=== PATIENT | male | born 1960 | race Caucasian/White ===

== ENCOUNTER 2016-11-09 23:53 | Emergency (ER) | payer OTHER ==
[~2016-11-09] VITALS: Ht 170.2 cm; Wt 90.8 kg
[~2016-11-09 23:53] MED LIST: LISI-791 PO; MULT-599 PO
[2016-11-09 23:57] VITALS: TEMP 36.6; Ht 170.2 cm; Wt 90.8 kg
[2016-11-10] MEDS ORDERED: SEPTRA DS HOME PACK 1 EA VIAL PO ONE (00:15)
[2016-11-10] MEDS ORDERED: SULF800T23 PO (00:16)
[2016-11-10 00:22] VITALS: BP 164/101; PULSE 84; O2SAT 96
--- NOTE | 2016-11-10 06:45 | EMERGENCY ROOM VISIT NOTE ---
History First contact with patient: 00:01 Chief Complaint: FINGER PAIN Stated Complaint: RIGHT PINKY IS BILLED AND THROBBING WITH PAIN History of Present Illness The patient is a 56 year old male who presents to the Emergency Room with complaints of pain and swelling of his right fifth finger worsening over the past 2-3 days. The patient does not recall injury or trauma to the area. He states that he believes there is infection in the finger, and attempted to drain it from home. The patient was not successful. He is not diabetic. He rates his discomfort a 5/10. Review of Systems More than 6 systems were reviewed and otherwise negative with the exception of history of present illness. Past Medical/Surgical History Medical Problems: (1) Carpal tunnel syndrome (2) Sleep apnea Family History No pertinent family history Social History Smoking Status: Never Smoker Marital Status: Occupation Status: employed Current/Historical Medications Scheduled Lisinopril (Zestril), 10 MG PO DAILY Multiple Vitamins W/ Minerals (Mens 50+ Multi Vitamin &), 1 TAB PO DAILY Sulfamethoxazole-Trimethoprim (Bactrim Ds 800MG/160MG), 1 TAB PO BID Physical Exam Vital Signs Date Time Temp Pulse Resp B/P (MAP) Pulse Ox O2 Delivery O2 Flow Rate FiO2 11/10/16 00:22 84 18 164/101 96 11/09/16 23:57 36.6 88 18 145/98 95 Room Air Physical Exam VITALS: Vitals are noted on the nurse's note and reviewed by myself. Vital signs stable. GENERAL: Well-developed, well-nourished, white male, who is in no acute distress and resting comfortably. Patient is cooperative with the examination. HEART: Regular rate and rhythm without murmurs gallops or rubs. LUNGS: Clear to auscultation bilaterally without wheezes, rales or rhonchi. No retractions or accessory muscle use. MUSCULOSKELETAL: There is erythema and edema along the medial aspect of the right fifth finger in the bridge of the fingernail. This is consistent with paronychia. The patient has full sensation and range of motion of the hand. No lymphangitic streaking. NEURO: Patient was alert and oriented to person place and time. CN II through XII grossly intact. Medical Decision & Procedures Medications Administered Medications (Trade) Dose Ordered Sig/Bennie Route Start Time Stop Time Status Last Admin Dose Admin Trimethoprim/ Sulfamethoxazole (Sulfameth/ Trimeth Ds 800/ 160MG Home Pack) 1 [facility] UD ONCE PO 11/10/16 00:15 11/10/16 00:16 DC 11/10/16 00:21 1 [facility] ED Course Physical exam and history were performed. Nursing notes, EMR, and Medication List were personally reviewed. Patient appears to have a paronychia of the right fifth finger. The patient I discussed options of care, and the skin was cleansed with Betadine. Utilizing sterile technique and ethyl chloride for anesthesia, I was able to drain a very small amount of purulent drainage utilizing an 18-gauge needle. The patient tolerated this well. He will be given a course of Bactrim and instructions to follow with his primary care physician in the next 2-3 days for recheck. He is to return to the ER with any new, worsening, or concerning symptoms. The chart was completed utilizing [employer] Speech Voice Recognition Software. Grammatical errors, random word insertions, pronoun errors, and incomplete sentences are an occasional consequence of this system due to software limitations, ambient noise, and hardware issues. Any formal questions or concerns about the content, text, or information contained within the body of this dictation should be directly addressed to the provider for clarification. . Medical Decision Differential diagnosis: Etiologies such as cellulitis, abscess, MRSA infection, DVT, necrotizing fasciitis, dermatitis, drug eruption, as well as others were entertained.. Impression Primary Impression: Paronychia of finger of right hand Departure Information Dispostion Home / Self-Care Condition GOOD Prescriptions Sulfamethoxazole-Trimethoprim (Bactrim Ds 800MG/160MG) 1 Tab Tab 1 TAB PO BID for 7 Days, #14 TAB Prov: Barry Curiel PA-C 11/10/16 Forms HOME CARE DOCUMENTATION FORM, IMPORTANT VISIT INFORMATION Patient Instructions My [facility] Additional Instructions You were seen and evaluated today on an emergency basis only. This is not a substitute for, or an effort to provide, complete comprehensive medical care. It is not possible to recognize and treat all injuries or illnesses in a single emergency department visit. For this reason it is recommended that you followup with your primary care physician this week for any ongoing or persistent symptoms. Trimethoprim-Sulfamethoxazole(Bactrim DS): Take one pill twice daily for 7 days for your skin infection. All antibiotics can cause diarrhea. If this occurs and you feel worse or it does not resolve in 1-2 days follow up with your doctor or return to the Emergency Department as this could be signs of serious underlying problems. Any medication can cause an allergic reaction, stop the pills immediately and return to the ER for rash, hives, breathing difficulties, or swelling. You are welcome to return to the emergency department anytime with new, worsening, or concerning symptoms.
== END 2016-11-10 00:23 | disposition home or self-care (01) ==
LOC: C.EDB 23:54 → C.EDC 11-10 00:23
DX: L03.011 Cellulitis of right finger (principal); M79.644 Pain in right finger(s); G47.30 Sleep apnea, unspecified; G56.00 Carpal tunnel syndrome, unspecified upper limb; Z79.899 Other long term (current) drug therapy

== ENCOUNTER 2018-03-12 13:04 | Inpatient (IN) ==
[2018-03-12 14:06] LABS: Appearance Urine Clear (Clear); Bacteria Urine Automated Negative (Negative); Bilirubin Urine Negative (Negative); Color Urine Yellow; Epithelial Cell Urine Auto 20-30 /lpf (0-5); Glucose Urine UA 3+ (Negative); Ketones Urine Trace (Negative); Leukocyte Esterase Urine Negative (Negative); Nitrite Urine Negative (Negative); Protein Urine 2+ (Negative); Urobilinogen Urine Negative (Negative); pH Urine 5.5 (4.5-7.5)
[2018-03-12 14:18] LABS: Calcium Oxalate Crystals Urine Present (None Prsent)
[2018-03-12 14:21] LABS: Basophils # (auto) 0.04 K/uL (0-0.2); Basophils % (auto) 0.4 %; Eosinophils # (auto) 0.37 K/uL (0-0.5); Eosinophils % (auto) 3.9 %; Hemoglobin 14.4 g/dL (14.0-18.0); Immature Granulocytes # (auto) 0.04 K/uL (0.00-0.02); Immature Granulocytes % (auto) 0.4 %; Lymphocytes # (auto) 1.68 K/uL (1.2-3.4); Lymphocytes % (auto) 17.9 %; Mean Corpuscular Hgb Conc 33.5 g/dL (32-36); Mean Corpuscular Volume 87.6 fL (80-100); Monocytes # (auto) 0.96 K/uL (0.11-0.59); Monocytes % (auto) 10.2 %; Neutrophils % (auto) 67.2 %; Platelet Count 206 K/uL (130-400); RDW Coefficient of Variation 12.4 % (11.5-14.5); RDW Standard Deviation 39.8 fL (36.4-46.3); Red Blood Count 4.91 M/uL (4.7-6.1); White Blood Count 9.39 K/uL (4.8-10.8)
[2018-03-12 14:51] LABS: Albumin Level 3.2 gm/dl (3.4-5.0); BUN Creatinine Ratio 10.9 (10-20); Calcium 8.7 mg/dl (8.5-10.1); Creatinine Clr Calc Pharmacy 97.4 ml/min; Est GFR (African American) 111.6; Est GFR (Non-African American) 96.3; Potassium 3.6 mmol/L (3.5-5.1)
[2018-03-12 14:52] LABS: Acetaminophen < 2 ug/ml (10-30); Salicylate < 1.7 mg/dl (2.8-20)
[2018-03-12 14:54] LABS: Amphetamines+Metham, Urine Neg (Neg); Barbiturates, Urine Neg (Neg); Benzodiazepine, Urine Neg (Neg); Cocaine, Urine Neg (Neg); MDMA (Ecstacy), Urine Neg (Neg); Methadone, Urine Neg (Neg); Opiate, Urine Neg (Neg); Phencyclidine, Urine Neg (Neg)
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
[2018-03-12 15:02] LABS: Albumin Globulin Ratio 0.8 (0.9-2); Bilirubin,Total 0.2 mg/dl (0.2-1); Total Protein 7.2 gm/dl (6.4-8.2)
[2018-03-12] MEDS ORDERED: LORazepam 1 MG TAB SL STA (17:57)
[2018-03-12] MEDS ORDERED: ALUMINUM/MAGNESIUM SUSP 30 ML UDC PO PRN (20:37)
[2018-03-12] MEDS ORDERED: BISMUTH SUBSALICYLATE PER ML OMNICELL CHARGE PO PRN (20:37)
[2018-03-12] MEDS ORDERED: MAGNESIUM HYDROXIDE SUSP 30 ML UDC PO PRN (20:37)
[2018-03-12] MEDS ORDERED: SODIUM CHLORIDE 0.65% NA SOLN 45 ML (OCEAN) PRN (20:37)
[2018-03-12] MEDS ORDERED: ACETAMINOPHEN 325 MG TAB PO PRN (20:37)
[2018-03-12] MEDS ORDERED: ALBUTEROL HFA 8 GM INHALER INH PRN (20:38)
[2018-03-12] MEDS ORDERED: IBUPROFEN 200 MG TAB PO PRN (20:47)
[2018-03-12] MEDS: APIXABAN 5 MG TABLET PO SCH (22:16)
[2018-03-12] MEDS: cloNIDine HCl 0.1 MG TAB PO SCH (22:16)
[2018-03-13] MEDS: METOPROLOL SUCC 50MG EXT REL TAB PO SCH (09:09)
[2018-03-13] MEDS: APIXABAN 5 MG TABLET PO SCH ×2 (09:09→21:27)
[2018-03-13] MEDS: cloNIDine HCl 0.1 MG TAB PO SCH ×2 (09:09→21:27)
[2018-03-13] MEDS: LISINOPRIL 10 MG TAB PO SCH (09:10)
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
[2018-03-13] MEDS: SERTRALINE HCL 50 MG TABLET PO SCH (15:10)
[2018-03-14] MEDS: SERTRALINE HCL 50 MG TABLET PO SCH (09:08)
[2018-03-14] MEDS: METOPROLOL SUCC 50MG EXT REL TAB PO SCH (09:08)
[2018-03-14] MEDS: cloNIDine HCl 0.1 MG TAB PO SCH (09:08)
[2018-03-14] MEDS: APIXABAN 5 MG TABLET PO SCH (09:08)
[2018-03-14] MEDS: LISINOPRIL 10 MG TAB PO SCH (09:08)
--- NOTE | 2018-03-14 10:00 | Discharge Summary ---
Date of Service March 14, 2018, >30 min spent reviewing case, meeting with patient and preparing documentation. History of Present Illness see H&P. Physical Exam Mental Examination I (Dr. Corcoran) personally met with the patient on the day of discharge and reviewed his care and discharge planning with nursing and social work. He verbalizes his safety plan. He has consistently denied SI/HI since admission and has not rescinded his 72 hour notice. Reviewed that he was hospitalized based on risk (prior potential lethal suicide attempt with a gun, mother completing suicide when he was 6). He is future focussed, reports that he wants to live for his children and grandchildren and is hoping he can return home after PFA hearing on 03/19. He has a job interview on 03/16. He will be supervised/staying with his son in the interim who confirms that his (son's) weapon was removed from the home and that patient will not have access. He is tolerating restart of Zoloft. He will resume 100 mg previously effective dose of Zoloft at discharge. Today the patient reports that he has a CPAP machine at home that he did not have access to here in the hospital. Reviewed that this could be the cause of BP being higher here. He states he will resume use on return home and will follow-up with PCP office on 03/16 after his job interview. There is no evidence of psychosis or other psychiatric condition interfering with his medical decision making and he does not meet criteria for involuntary commitment. He will be discharged to outpatient care with close follow-up as scheduled. Appearance: Well Groomed Eye Contact: Maintains Eye Contact Motor Behavior: Unremarkable Speech: Normal Mood: Euthymic Affect: Appropriate Thought Process: Linear and Logical Thought Content: Intact Hallucinations: None Insight: Fair Judgement: Fair Vital Signs (Past 24 Hours) Last Vital Signs Temp 36.5 C 03/14/18 06:46 Pulse 80 03/14/18 06:48 Resp 16 03/14/18 06:46 BP 153/105 H 03/14/18 06:48 Pulse Ox 95 03/12/18 21:01 Principal Diagnosis Major depressive disorder Psychiatric Data Advance Directives Advance Directives Information Provided: Yes Advance Directives: No Mental Health Advance Directive: No Advance Directives on File: No Living Will: No Power of [employer] Sales Representative: No Advance Directives Reason:: Declines as Mental Health Visit. Risk Factors Assessment Male: Yes : Yes Do You Have Access To A Gun?: No Health Problems: Yes Mental Health Diagnoses: Yes Substance Use Disorders: No Previous Attempt: Yes Previous Attempt; Highly Lethal: Yes Previous Attempt; Planned: Yes Previous Attempt; Didn't Tell Anyone: No Family History of Suicide: Yes Previous Psychiatric Hospitalization: Yes (In [place] following his suicide attempt of 10/28.) Hopelessness: No Smoker: No Protective Factors Assessment Advent Beliefs: Yes : Yes Responsible for Young Children: Yes Employed: No Stable Relationships: Yes Supportive Family: Yes (Certain family members are supportive, such as his son. However, certain family members have indicated that they can no longer be supportive.) Good Rapport with Provider: Yes Absence of Any Risk Factors Above: No Discharge Data Lab Results 03/12/18 03/12/18 03/12/18 13:18 13:18 14:01 WBC 9.39 RBC 4.91 Hgb 14.4 Hct 43.0 MCV 87.6 MCH 29.3 MCHC 33.5 RDW Std Deviation 39.8 RDW Coeff of Maciel 12.4 Plt Count 206 MPV 10.0 Immature Gran % (Auto) 0.4 Neut % (Auto) 67.2 Lymph % (Auto) 17.9 Fallon % (Auto) 10.2 Eos % (Auto) 3.9 Baso % (Auto) 0.4 Immature Gran # (Auto) 0.04 H Neut # (Auto) 6.30 Lymph # (Auto) 1.68 Fallon # (Auto) 0.96 H Eos # (Auto) 0.37 Baso # (Auto) 0.04 Sodium Potassium Chloride Carbon Dioxide Anion Gap BUN Creatinine Est Cr Clr Drug Dosing Est GFR ( Amer) Est GFR (Non-Af Amer) BUN/Creatinine Ratio Glucose Calcium Total Bilirubin AST ALT Alkaline Phosphatase Total Protein Albumin Globulin Albumin/Globulin Ratio TSH Urine Color Yellow Urine Appearance Clear Urine pH 5.5 Ur Specific [place] 1.030 Urine Protein 2+ H Urine Glucose (UA) 3+ H Urine Ketones Trace H Urine Blood Negative Urine Nitrite Negative Urine Bilirubin Negative Urine Urobilinogen Negative Ur Leukocyte Esterase Negative Urine WBC (Auto) 1-5 Urine RBC (Auto) 0-4 U Hyaline Cast (Auto) 10-30 H U Epithel Cells (Auto) 20-30 H Urine Bacteria (Auto) Negative Urine Crystals Not Reportable Calcium Oxalate Crystal Present H Salicylates Urine Opiates Screen Neg Ur Methadone, Qual Neg Acetaminophen Urine Barbiturates Neg Ur Phencyclidine (PCP) Neg U Amphetamin/Meth Scrn Neg MDMA (Ecstasy) Screen Neg U Benzodiazepines Scrn Neg Ur Cocaine Metabolite Neg U Marijuana (THC) Screen Neg Ethyl Alcohol mg/dL 03/12/18 03/12/18 03/12/18 14:01 14:01 14:01 WBC RBC Hgb Hct MCV MCH MCHC RDW Std Deviation RDW Coeff of Maciel Plt Count MPV Immature Gran % (Auto) Neut % (Auto) Lymph % (Auto) Fallon % (Auto) Eos % (Auto) Baso % (Auto) Immature Gran # (Auto) Neut # (Auto) Lymph # (Auto) Fallon # (Auto) Eos # (Auto) Baso # (Auto) Sodium 138 Potassium 3.6 Chloride 103 Carbon Dioxide 29 Anion Gap 6.0 BUN 10 Creatinine 0.89 Est Cr Clr Drug Dosing 97.4 Est GFR ( Amer) 111.6 Est GFR (Non-Af Amer) 96.3 BUN/Creatinine Ratio 10.9 Glucose 180 H Calcium 8.7 Total Bilirubin 0.2 AST 13 L ALT 19 Alkaline Phosphatase 112 Total Protein 7.2 Albumin 3.2 L Globulin 4.0 Albumin/Globulin Ratio 0.8 L TSH 1.110 Urine Color Urine Appearance Urine pH Ur Specific [place] Urine Protein Urine Glucose (UA) Urine Ketones Urine Blood Urine Nitrite Urine Bilirubin Urine Urobilinogen Ur Leukocyte Esterase Urine WBC (Auto) Urine RBC (Auto) U Hyaline Cast (Auto) U Epithel Cells (Auto) Urine Bacteria (Auto) Urine Crystals Calcium Oxalate Crystal Salicylates < 1.7 L Urine Opiates Screen Ur Methadone, Qual Acetaminophen < 2 L Urine Barbiturates Ur Phencyclidine (PCP) U Amphetamin/Meth Scrn MDMA (Ecstasy) Screen U Benzodiazepines Scrn Ur Cocaine Metabolite U Marijuana (THC) Screen Ethyl Alcohol mg/dL < 3.0 Hospital Course (1) Depressed: 03/13/18 -The patient denies any current suicidal ideation. -He insists that statements that he may have made prior to the admission were misinterpreted as possibly being suicidal, but that he was not having any suicidal thoughts prior to admission. -The patient does acknowledge that he has been depressed, primarily because of his marital difficulties, and reports that he has had a favorable response to Zoloft 50 mg daily. -The patient also acknowledges that the primary reason he sought psychiatric hospitalization was that the police told him that his choice would be to enter a inpatient psychiatric unit or [facility] [place] [facility] violating a [place]. -Patient has a history of making a serious suicide attempt by gunshot wound approximately 5 months ago. He claims that he had intended to shoot himself , change his mind, and then accidentally fired the weapon as he was putting it down. He reports that all firearms have been removed from his home and that he has had no thoughts of suicide since October. The patient also is future oriented, describes various plans, including plans to secure employment. Nevertheless, he is under significant psychosocial stressors, including the end of his marriage, loss of his home, and unemployment. - Resume Zoloft 50 mg daily and titrate as indicated (2) Hypertension: 03/13/18 -The patient has been placed on 3 antihypertensive agents, including lisinopril, metoprolol, and clonidine, starting today. His blood pressure has come down today to 149/95, and we will continue to monitor Post Discharge Appointments Primary Care Physician Name Of Family Doctor: Dr. Melchor [facility] Date of Appointment with PCP: 03/25/18 Time of Appointment with PCP: 12:45 Provider Appointment Comment: follow up for hypertension Primary Care Release of Information: Obtained, Reviewed and Signed Psychiatrist Name of Psychiatrist: Dr. Susi James Psychiatrist's Date of Appointment with Psychiatrist: 03/19/18 Time of Appointment with Psychiatrist: 8:45 Psychiatric Appointment Comment: [id number] [place] [id number] Psychiatrist Release of Information: Obtained, Reviewed and Signed Therapist Name of Therapist: Austin Maloney Therapist's Date of Therapist Appointment: 03/19/18 Time of Therapist Appointment: 9am Therapy Appointment Comment: [address] [place] [id number] Therapist Release of Information: Obtained, Reviewed and Signed Hostel Manager Name of Hostel Manager: None Contact Information Discharge Discharge Address: uncertain, will stay with son at discharge (home [address] [facility] [id number] Discharge Plan Discharge Items Patient Disposition: Home - Self-Care Reason For Visit: MDD Discharge Diagnosis: same Discharge Goals: Improve disease control and Improve function Activity: Resume your previous activity Non-emergency contact: Primary Care Provider and Psychiatrist Call non-emergency contact if: your symptoms worsen Diet: Regular Addtl Provider Instructions: SPECIAL CARE INSTRUCTIONS: 1. Follow through with your scheduled aftercare appointments. If unable to keep an appointment, please call to reschedule. 2. Take your medication only as prescribed. Medication should not be changed or stopped without the approval of your doctor. In the event of worsening symptoms or concerns about side effects, contact your doctor immediately. 3. Utilize new healthy coping skills, anger management skills, and stress management skills learned during your hospitalization. Journal feelings and process them with a support person. Identify stressors or situations that may result in relapse, deterioration or inappropriate behaviors and develop a plan to deal with those issues. 4. If your coping skills are ineffective and you are in crisis, contact your outpatient providers for direction. If unable to reach your providers, please call the CAN HELP LINE AT or go to the closest Emergency Room. 5. Avoid alcohol and un-prescribed drugs. 6. You have been provided with the Mental Health Advance Directives Pamphlet for your review. AFTERCARE APPOINTMENTS: * Please call your insurance company prior to your scheduled appointment to confirm your aftercare providers are covered. Take your insurance information to your appointments. WHO TO CALL AND WHEN: Medical Emergencies: For questions or emergencies related to your hospital stay, please contact the Inpatient Behavioral Health Unit at [phone]. A cross country/track and field coach is on-call 02/09 for the Behavioral Health Unit for emergencies At any time you feel your situation is an emergency, you may also call 911 immediately. Your Doctors Instructions noted above were prepared by provider Bryanna Corcorna MD. Prescriptions: New albuterol sulfate 90 mcg/actuation HFA aerosol inhaler 2 puff Inhalation Q6H PRN (Reason: shortness of breath) 30 Days Qty: 1 RF: 0 Continue clonidine HCl 0.1 mg Tablet 0.1 mg PO BID RF: 0 metoprolol succinate [Toprol XL] 100 mg Tablet Extended Release 24 Hr 100 mg PO QAM RF: 0 lisinopril 10 mg Tablet 10 mg PO QAM RF: 0 apixaban [Eliquis] 5 mg Tablet 5 mg PO BID RF: 0 albuterol sulfate [Ventolin HFA] 90 mcg/actuation Hfa Aerosol Inhaler 2 puff INHALATION Q6H PRN (Reason: Shortness Of Breath Or Wheezing) RF: 0 sertraline [Zoloft] 100 mg Tablet 100 mg PO QAM 30 Days Qty: 30 RF: 0 Discontinued ibuprofen 200 mg Capsule 400 mg PO UD PRN (Reason: Pain) RF: 0 Stand-Alone Forms: [facility] Discharge Orders: Discharge Order (Routine); Ordered 03/14/18 Ordered By: Bryanna Corcoran Admission Data Admit Date/Time: 03/12/18 19:25 Attending Provider: Ladarius Mayes Admit Provider: Geno Bhardwaj Primary Care Provider: Teddy Connolly Service: Psychiatry Other Interventions: PSY Interdisciplinary Discharge Planning Last Done: 03/14/18 09:18 Pending Studies at Discharge: No
== END 2018-03-14 14:30 | disposition home or self-care (01) | DRG 881 ==
LOC: ED 13:04 → 3S 19:25